=== PATIENT | male | born 1950 | race Caucasian/White ===

== ENCOUNTER 2018-03-25 07:14 | Day surgery (SDC) | payer MEDICARE, OTHER ==
[2018-03-25] MEDS ORDERED: LIDOCAINE 2% 100 MG/5 ML UJET TP ONE (09:48)
[2018-03-25] MEDS ORDERED: MIDAZOLAM 2 MG/2 ML VIAL ONE (10:05)
[2018-03-25] MEDS ORDERED: MIDAZOLAM 2 MG/2 ML VIAL IVP ONE (10:50)
== END 2018-03-25 11:17 | disposition home or self-care (01) ==
LOC: MDS 07:14 → MMU 07:24 → MDS 11:17
PROVIDERS: ATTEND Internal Medicine Gastroenterology
DX: Z12.11 Encounter for screening for malignant neoplasm of colon (principal); D12.3 Benign neoplasm of transverse colon; Z86.010 Personal history of colon polyps; K64.8 Other hemorrhoids; K57.30 Diverticulosis of large intestine without perforation or abscess without bleeding; I10 Essential (primary) hypertension; E78.00 Pure hypercholesterolemia, unspecified; F41.9 Anxiety disorder, unspecified; I69.351 Hemiplegia and hemiparesis following cerebral infarction affecting right dominant side; Z98.890 Other specified postprocedural states; Z79.01 Long term (current) use of anticoagulants; Z79.899 Other long term (current) drug therapy; Z87.891 Personal history of nicotine dependence; Z95.1 Presence of aortocoronary bypass graft
CPT/HCPCS: 45385; J2250; J7120